=== PATIENT | female | born 1950 | race Caucasian/White ===

== ENCOUNTER 2020-08-23 17:40 | Observation (INO) | payer MEDICARE ==
--- NOTE | 2020-08-23 18:34 | ED ---
Headache HPI - General Chief Complaint: Headache Stated Complaint: headache Time Seen by Provider: 08/23/20 18:27 Mode of arrival: ambulatory Limitations: no limitations - History of Present Illness Initial Comments: 69-year-old female with history of trigeminal neuralgia presenting to the emergency room with chief complaint of headache. Patient states she's had multiple rhizotomies and craniotomies to perform decompressive surgery. Patient states her most recent surgery was performed about 10 years ago and Zachary was placed between the nurse and the artery. Patient states she has been asymptomatically for about 10 years until 2 days ago when she started to develop symptoms on the left lower side of the face and has gradually progressed more superior. Patient states she's had left-sided facial numbness and loss of hearing ever since her second craniotomy. Patient states she went [facility] and was given [place] for pain but could not be evaluated by neurologist so she came here instead. She denies one-sided weakness or paresthesias. - Related Data Allergies Allergy/AdvReac Type Severity Reaction Status Date / Time morphine Allergy Vomiting Verified 08/23/20 17:50 Review of Systems ROS Statement: Those systems with pertinent positive or pertinent negative responses have been documented in the HPI. ROS Other: All systems not noted in ROS Statement are negative. Past Medical History Past Medical History: Hypertension Additional Past Medical History / Comment(s): trigeminal neuralgia History of Any Multi-Drug Resistant Organisms: Unobtainable Past Surgical History: Cholecystectomy Additional Past Surgical History / Comment(s): craniotomy, back surgery. Past Psychological History: No Psychological Hx Reported Smoking Status: Never smoker Past Alcohol Use History: None Reported Past Drug Use History: None Reported General Exam Limitations: no limitations General appearance: alert, in no apparent distress Head exam: Present: atraumatic, normocephalic, normal inspection Eye exam: Present: normal appearance, PERRL, EOMI Pupils: Present: normal accommodation ENT exam: Present: normal exam, normal oropharynx, mucous membranes moist, TM's normal bilaterally, normal external ear exam Neck exam: Present: normal inspection, full ROM. Absent: tenderness Respiratory exam: Present: normal lung sounds bilaterally. Absent: respiratory distress, wheezes, rales Cardiovascular Exam: Present: regular rate, normal rhythm, normal heart sounds Extremities exam: Present: normal inspection, full ROM, normal capillary refill. Absent: tenderness, pedal edema, joint swelling Back exam: Present: normal inspection, full ROM Neurological exam: Present: alert, oriented X3 Psychiatric exam: Present: normal affect, normal mood Skin exam: Present: warm, dry, intact, normal color Course Vital Signs 08/23/20 17:46 Temperature 97.8 F Pulse Rate 69 Respiratory 18 Rate Blood Pressure 159/87 O2 Sat by Pulse 97 Oximetry Medical Decision Making - Medical Decision Making 69-year-old female with history of trigeminal neuralgia presenting to emergency Department with a chief complaint of headache. Neurological examination is unremarkable. Patient had multiple risotto me and craniotomy about 10 years ago. This is a new onset headache with a trigeminal neuralgia pattern on the left side of the face. CT of the brain and C-spine shows no acute processes. Patient will be symptomatic control and will be admitted for further medical management. Case discussed with physician. Disposition Clinical Impression: Headache Disposition: ADMITTED IP TO THIS [facility] Condition: Good Instructions (If sedation given, give patient instructions): Acute Headache (ED) Is patient prescribed a controlled substance at d/c from ED?: No Referrals: Fatmata Feldman DO [Primary Care Provider] - 1-2 days Time of Disposition: 20:42
--- NOTE | 2020-08-23 19:55 | CT ---
EXAMINATION TYPE: CT brain wo con DATE OF EXAM: 08/23/2020 COMPARISON: None HISTORY: WOODS CT DLP: 1114.4 mGycm Automated exposure control for dose reduction was used. Ventricles have normal size. There is no mass effect nor midline shift. There is no sign of intracran ial hemorrhage. There is old left side occipital posterior temporal craniotomy defect. There is some hypodensity in the lateral aspect left cerebellar hemisphere consistent with old encephalomalacia. Fo urth ventricle is in midline. There is no mass effect. Sella turcica appears normal. 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 No acute intracranial abnormality.
[2020-08-23] MEDS ORDERED: NALOXONE 0.4 MG/ML 1 ML VIAL IV PRN (20:42)
[2020-08-23] MEDS ORDERED: ACETAMINOPHEN TAB 325 MG TAB PO PRN (20:42)
[2020-08-23] MEDS ORDERED: LORazepam 2 MG/ML INJ IV PRN (20:42)
[2020-08-23] MEDS ORDERED: HYDROmorphone 0.5 MG/0.5 ML SYRINGE IVP PRN (20:42)
[2020-08-23] MEDS ORDERED: IBUPROFEN 400 MG TAB PO PRN (20:42)
[2020-08-23] MEDS ORDERED: HYDROmorphone 1 MG/ML 1 ML SYRINGE IVP PRN (20:42)
[2020-08-23] MEDS: HYDROcodone/APAP 5-325MG 1 EACH TAB PO PRN (21:05)
[2020-08-24] MEDS: ONDANSETRON 4 MG/2 ML VIAL IVP PRN ×3 (02:41→18:39)
[2020-08-24] MEDS: HYDROcodone/APAP 5-325MG 1 EACH TAB PO PRN ×2 (08:41→19:50)
[2020-08-24] MEDS: PANTOPRAZOLE 40 MG/10 ML VIAL IVP SCH ×2 (08:41→20:46)
--- NOTE | 2020-08-24 09:42 | P.HPIM ---
History of Present Illness This is a pleasant 69 years old female with past medical history of hypertension, pneumonia. Trigeminal neuralgia since 1983, status post 2 craniotomies and she felt better after the second one. She is a patient of Dr. Mcclelland. For the last 10 years or trigeminal neuralgia was controlled until Over the last 2 days she severe pain in the left base similar to her trigeminal neuralgia pain, felt like sharp shooting pain about 10/10 in severity, now coming down to 8/10 her pain was rotated into the left ear. No blurred vision. Patient also denies chest pain, no dyspnea, no diarrhea or change in bowel habits. No fever. Patient denies smoking, alcohol or illicit drug Vitals are stable. No labs done. CT of the brain showing old encephalomalacia in the left lateral cerebellar hemisphere. No acute intracranial abnormality Review of Systems CONSTITUTIONAL: No fever, no malaise, no fatigue. HEENT: No recent visual problems or hearing problems. Denied any sore throat. CARDIOVASCULAR: No orthopnea, PND, no palpitations, no syncope. PULMONARY: No shortness of breath, no cough, no hemoptysis. GASTROINTESTINAL: No diarrhea, no nausea, no vomiting, no abdominal pain. Normoactive bowel sounds. NEUROLOGICAL: no weakness, no numbness. HEMATOLOGICAL: Denies any bleeding or petechiae. GENITOURINARY: Denies any burning micturition, frequency, or urgency. MUSCULOSKELETAL/RHEUMATOLOGICAL: Denies any joint pain, swelling, or any muscle pain. ENDOCRINE: Denies any polyuria or polydipsia. Past Medical History Past Medical History: Hypertension, Pneumonia Additional Past Medical History / Comment(s): trigeminal neuralgia - started in 1983. pneumonia 2018. covid - jul 06 positive test History of Any Multi-Drug Resistant Organisms: None Reported Past Surgical History: Cholecystectomy Additional Past Surgical History / Comment(s): 2 craniotomy - 1998,2010. 4 rhizotomies - 1985,1988,1991,2000. back surgery - 2007 - pilonidal cyst between L5 and L6. c-sections, tubal - one removed. wisdom teeth Past Anesthesia/Blood Transfusion Reactions: No Reported Reaction Past Psychological History: No Psychological Hx Reported Smoking Status: Never smoker Past Alcohol Use History: None Reported Past Drug Use History: None Reported - Past Family History Father Family Medical History: Unable to Obtain Mother Family Medical History: Hypertension, Myocardial Infarction ([place]) Additional Family Medical History / Comment(s): rare form of epilepsy causing frequent status epilepticus episodes. in 2019 Son(s) Additional Family Medical History / Comment(s): add/adhd Medications and Allergies Home Medications Medication Instructions Recorded Confirmed Type Ascorbic Acid [Vitamin C] 500 mg PO DAILY 08/23/20 08/23/20 History Cetirizine HCl [Zyrtec] 10 mg PO HS 08/23/20 08/23/20 History Cholecalciferol [Vitamin D3 (25 50 mcg PO DAILY 08/23/20 08/23/20 History Mcg = 1000 Iu)] Losartan Potassium [Cozaar] 100 mg PO DAILY 08/23/20 08/23/20 History Multivitamins, Thera [Multivitamin 1 tab PO DAILY 08/23/20 08/23/20 History (formulary)] Omeprazole [PriLOSEC] 20 mg PO DAILY 08/23/20 08/23/20 History Zinc 50 mg PO DAILY 08/23/20 08/23/20 History buPROPion XL [Wellbutrin Xl] 150 mg PO DAILY 08/23/20 08/23/20 History Allergies Allergy/AdvReac Type Severity Reaction Status Date / Time morphine Allergy Vomiting Verified 08/23/20 20:57 Physical Exam Vitals: Vital Signs Temp Pulse Pulse Resp BP BP Pulse Ox 08/24/20 02:45 98.7 F 62 18 134/78 96 08/23/20 22:31 62 18 109/65 96 08/23/20 22:15 90 18 129/95 98 08/23/20 21:16 85 18 98 08/23/20 17:46 97.8 F 69 18 159/87 97 Intake and Output 08/23/20 08/24/20 08/24/20 22:59 06:59 14:59 Intake Total 100 Output Total 150 Balance -50 Intake: Oral 100 Output: Emesis 150 Other: Voiding Method Toilet # Voids 1 Weight 108.4 kg GENERAL: The patient is alert and oriented x3, not in any acute distress. Well developed, well nourished. HEENT: Pupils are round and equally reacting to light. EOMI. No scleral icterus. No conjunctival pallor. Normocephalic, atraumatic. No pharyngeal erythema. No thyromegaly. CARDIOVASCULAR: S1 and S2 present. No murmurs, rubs, or gallops. PULMONARY: Chest is clear to auscultation, no wheezing or crackles. ABDOMEN: Soft, nontender, nondistended, normoactive bowel sounds. No palpable organomegaly. MUSCULOSKELETAL: No joint swelling or deformity. EXTREMITIES: No cyanosis, clubbing, or pedal edema. NEUROLOGICAL: Gross neurological examination did not reveal any focal deficits. SKIN: No rashes. No petechiae Thrombosis Risk Factor Assmnt - Choose All That Apply Each Factor Represents 1 point: Obesity (BMI >25) Each Risk Factor Represents 2 Points: Age 61-74 years Thrombosis Risk Factor Assessment Total Risk Factor Score: 3 Thrombosis Risk Factor Assessment Level: Moderate Risk Assessment and Plan Assessment: Acute headache related to trigeminal neuralgia Essential hypertension Plan: This is a pleasant 69 years old female who presents with trigeminal neuralgia, continue with pain management and consult neurology. Labs and medication were reviewed.. Continue same treatment. Continue with symptomatic treatment. Resume home medication. Monitor lytes and vitals. DVT and GI prophylaxis. Further recommendations depends on the clinical course of the patient DVT prophylaxis: Subcutaneous heparin GI Prophylaxis: Pepcid
[2020-08-24 10:10] LABS: Basophils # (A) 0.1 k/uL (0-0.2); Basophils % (A) 1 %; Eosinophils % (A) 1 %; HCT 44.1 % (34.0-46.0); Lymphocytes # (A) 1.1 k/uL (1.0-4.8); Lymphocytes % (A) 18 %; MCH 32.2 pg (25.0-35.0); MCV 94.7 fL (80.0-100.0); Mean Platelet Volume 6.5; Monocytes # (A) 0.3 k/uL (0-1.0); Monocytes % (A) 5 %; Neutrophils # (A) 4.6 k/uL (1.3-7.7); Neutrophils % (A) 75 %; Platelet Count 216 k/uL (150-450); RBC 4.65 m/uL (3.80-5.40); RDW 12.4 % (11.5-15.5); WBC 6.2 k/uL (3.8-10.6)
[2020-08-24 10:17] LABS: Calcium 9.4 mg/dL (8.4-10.2); Potassium 4.3 mmol/L (3.5-5.1)
--- NOTE | 2020-08-24 10:17 | P.CNNES ---
History of Present Illness Consult date: 08/24/20 Requesting physician: Wilian Baca Reason for Consult: Headache History of Present Illness: This is a 69-year-old woman with medical history of trigeminal neuralgia (since age 34 years-old) status post multiple rhizotomies and craniotomies for decompression that presented to the emergency department on 08/23/2020 for headache. Patient stated that she's been asymptomatic for about 10 years until 2 days ago started developing electrical talk from the left upper lip all the way to the left side of the face and has been constant. She feels the pain is 10 over 10. Denies any photophobia or phonophobia. Denies any nausea and vomiting. Denies any ringing in the ear hearing loss. Denies any focal weakness or numbness. In the ED patient was started on Dilaudid 1 tablet every 3 hours. Patient was started on ibuprofen 400 mg 1 tablet every 4 hours. Was started on 0.5 mg of Ativan 1 tablet every 6 hours. Currently the patient's pain is 5/10. She denies any blurring of vision. Patient stated that that she drinks the 3-5 cans of pop and one cup of coffee daily. Patient stated that the regarding her trigeminal neuralgia she by neurologist as well as the neurosurgeon in the past. The last time she saw a neurologist was about 2 years ago and he retired. And she has not followed up with any neurologist since then. In the past that she had a surgery at the [facility] in which she had a craniotomy and it was over the left occipital region. And then had another surgery which was the last one about 10 years ago over at [facility] and she stated that after the surgery her headaches were controlled. She had at Zachary was placed and she is again as I mentioned earlier she's been asymptomatic for 10 years. She said that she's been having left facial numbness and left hearing loss since her second craniotomy. In the past she was on Tegretol high dose she said the Tegretol were helping but after being on high-dose that's when she started getting surgeries. Currently she is not on any medication. Also she was in the past on the gabapentin and that made her sick. Also she was on Elavil in the past but that didn't help him. As I stated earlier I the patient is not on any medication for her trigeminal neuralgia and she doesn't follow up with a neurologist or neurosurgeon in the last 2 years. Workup in our facility consisted of: Initial vital signs was blood pressure of 159/87, heart rate of 69, respiratory of 18, temperature of 97.8 Fahrenheit oral and pulse ox of 97% at room air. CT of the head is reported as old encephalomalacia over the left lateral cerebellar hemisphere. No acute intracranial abnormality. Facility the patient was started on Tylenol 650 mg 1 tablet the every 6 hours when necessary. She was also started on the Harmony 5/325 one tablet every 4 hours as needed. As well as Dilaudid 0.5 mg 1 tablet every 3 hours. As well as another 1 mg of Review of Systems Review of system: The 12 point system was reviewed and apparent positive and negative per HPI. Past Medical History Past Medical History: Hypertension, Pneumonia Additional Past Medical History / Comment(s): trigeminal neuralgia - started in 1983. pneumonia 2018. covid - jul 06 positive test History of Any Multi-Drug Resistant Organisms: None Reported Past Surgical History: Cholecystectomy Additional Past Surgical History / Comment(s): 2 craniotomy - 1998,2010. 4 rhizotomies - 1985,1988,1991,2000. back surgery - 2007 - pilonidal cyst between L5 and L6. c-sections, tubal - one removed. wisdom teeth Past Anesthesia/Blood Transfusion Reactions: No Reported Reaction Past Psychological History: No Psychological Hx Reported Smoking Status: Never smoker Past Alcohol Use History: None Reported Past Drug Use History: None Reported - Past Family History Father Family Medical History: Unable to Obtain Mother Family Medical History: Hypertension, Myocardial Infarction ([place]) Additional Family Medical History / Comment(s): rare form of epilepsy causing frequent status epilepticus episodes. in 2019 Son(s) Additional Family Medical History / Comment(s): add/adhd Medications and Allergies Home Medications Medication Instructions Recorded Confirmed Type Ascorbic Acid [Vitamin C] 500 mg PO DAILY 08/23/20 08/23/20 History Cetirizine HCl [Zyrtec] 10 mg PO HS 08/23/20 08/23/20 History Cholecalciferol [Vitamin D3 (25 50 mcg PO DAILY 08/23/20 08/23/20 History Mcg = 1000 Iu)] Losartan Potassium [Cozaar] 100 mg PO DAILY 08/23/20 08/23/20 History Multivitamins, Thera [Multivitamin 1 tab PO DAILY 08/23/20 08/23/20 History (formulary)] Omeprazole [PriLOSEC] 20 mg PO DAILY 08/23/20 08/23/20 History Zinc 50 mg PO DAILY 08/23/20 08/23/20 History buPROPion XL [Wellbutrin Xl] 150 mg PO DAILY 08/23/20 08/23/20 History Allergies Allergy/AdvReac Type Severity Reaction Status Date / Time morphine Allergy Vomiting Verified 08/23/20 20:57 Physical Examination - Vital Signs Vital Signs: Vital Signs Temp Pulse Pulse Resp BP BP Pulse Ox 08/24/20 02:45 98.7 F 62 18 134/78 96 08/23/20 22:31 62 18 109/65 96 08/23/20 22:15 90 18 129/95 98 08/23/20 21:16 85 18 98 08/23/20 17:46 97.8 F 69 18 159/87 97 Intake and Output 08/23/20 08/24/20 08/24/20 22:59 06:59 14:59 Intake Total 100 Output Total 150 Balance -50 Intake: Oral 100 Output: Emesis 150 Other: Voiding Method Toilet # Voids 1 Weight 108.4 kg GENERAL: The patient is lying in bed and is not in mild acute distress. CHEST: The heart rate is regular rate rhythm. No murmurs to auscultation. LUNG: Clear to auscultation bilaterally no wheezing noted throughout. Not labored breathing. ABDOMEN/GI: Bowel sounds present in all 4 quadrants. No tenderness to palpation throughout. NEUROLOGICAL: Higher mental function: The patient is awake, alert, oriented to self, place and time. Patient is following commands. No aphasia and no neglect. Cranial nerves: Visual acuity is 20/20 OD and 20/40 OS without correction. The pupils are round, equal and reactive to light and accommodation. Visual carnes are full to confrontation throughout. Extraocular movement is intact no nystagmus is noted. Facial sensation is normal to touch throughout. Gait is deferred. The facial strength is normal throughout. Hearing is normal bilaterally to hand rub. Tongue is midline and moved [id number] without any difficulty. No dysarthria is noted. Shoulder shrug is normal bilaterally. Motor: The strength is 5 over 5 throughout. Normal tone and bulk. Cerebellum: Normal finger to nose heel to domínguez bilaterally. Sensation: Sensation is normal to touch throughout. Reflexes (right/left): 2+ throughout. Plantars are downgoing bilaterally. Assessment and Plan Assessment: This is a 69-year-old woman with medical history of trigeminal neuralgia status post multiple rhizotomies and craniotomies for decompression that presented to the emergency department on 08/23/2020 for headache. 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 Plan: I'll start the patient on carbamazepine 100 mg 1 tablet twice a day. I notified the patient to have that doesn't help we'll attempt to try treated in a week and can go up 100 mg 2 tablet twice a day. I notified her that the medication can cause hyponatremia. I ordered the CBC and BMP. She was advised to cut down on that excessive caffeinated/pop during which cause rebound headache. Patient is in agreement that she'll hold off on any further at imaging such as MRI until she sees a neurologist as an outpatient if needed. Please avoid excessive opioid/narcotic use which can cause rebound headache. Upon discharge the patient needs to follow-up with a neurologist as outpatient within 1-2 weeks. I recommend patient to follow-up with Dr. Hope (headache specialist) over at [facility] as outpatient. The plan was discussed with the patient's nurse. Thank you for the consultation. Sravan Barajas MD Neuro-Hospitalist Time with Patient: Greater than 30
[2020-08-24] MEDS: carBAMazepine 200 MG TAB PO SCH ×2 (10:20→19:51)
[2020-08-24] MEDS ORDERED: ZINC SULFATE 220 MG CAP PO SCH (12:00)
[2020-08-24] MEDS: ASCORBIC ACID 500 MG TAB PO SCH (12:04)
[2020-08-24] MEDS: CHOLECALCIFEROL 25 MCG (1000 IU) TABLET PO SCH (12:04)
[2020-08-24] MEDS: buPROPion XL 150 MG TAB.ER.24H PO SCH (12:05)
[2020-08-24] MEDS: HEPARIN SODIUM,PORCINE 5,000 UNIT/ML 1 ML VIAL SQ SCH (20:47)
[2020-08-24] MEDS: FAMOTIDINE 20 MG/2 ML VIAL IV SCH (20:47)
[2020-08-24] MEDS: LOSARTAN 50 MG TAB PO SCH (20:47)
[2020-08-24] MEDS ORDERED: LORATADINE 10 MG TAB PO SCH (21:00)
[2020-08-25] MEDS ORDERED: ASCORBIC ACID 500 MG TAB PO SCH (09:00)
[2020-08-25] MEDS ORDERED: LOSARTAN 50 MG TAB PO SCH (09:00)
[2020-08-25] MEDS ORDERED: buPROPion XL 150 MG TAB.ER.24H PO SCH (09:00)
[2020-08-25] MEDS ORDERED: ZINC SULFATE 220 MG CAP PO SCH (09:00)
[2020-08-25] MEDS ORDERED: CHOLECALCIFEROL 25 MCG (1000 IU) TABLET PO SCH (09:00)
[2020-08-25 09:33] VITALS: BP 141/68; PULSE 65; RESP 18; TEMP 97.5
[2020-08-25] MEDS: carBAMazepine 200 MG TAB PO SCH (09:47)
[2020-08-25] MEDS: buPROPion XL 150 MG TAB.ER.24H PO SCH (09:48)
[2020-08-25] MEDS: CHOLECALCIFEROL 25 MCG (1000 IU) TABLET PO SCH (09:49)
[2020-08-25] MEDS: FAMOTIDINE 20 MG/2 ML VIAL IV SCH (09:53)
[2020-08-25] MEDS: PANTOPRAZOLE 40 MG/10 ML VIAL IVP SCH (09:53)
[2020-08-25] MEDS: HEPARIN SODIUM,PORCINE 5,000 UNIT/ML 1 ML VIAL SQ SCH (09:53)
[2020-08-25] MEDS: LOSARTAN 50 MG TAB PO SCH (09:54)
[2020-08-25] MEDS: ASCORBIC ACID 500 MG TAB PO SCH (09:55)
--- NOTE | 2020-08-25 11:39 | P.PN ---
Subjective Progress Note Date: 08/25/20 The patient was seen at bedside and she stated that she's doing much better today compared to yesterday. She stated that her headache has resolved. She feels somewhat nauseous but otherwise she's doing great. Denies of any focal weakness numbness or visual disturbance. Objective - Vital Signs Vital signs: Vital Signs Temp 97.5 F L 08/25/20 08:30 Pulse 65 08/25/20 08:30 Resp 18 08/25/20 08:30 BP 141/68 08/25/20 08:30 Pulse Ox 98 08/25/20 08:30 Intake & Output 08/24/20 08/25/20 08/25/20 18:59 06:59 18:59 Intake Total 1040 400 Output Total 60 200 Balance 980 200 Intake: Oral 1040 400 Output: Emesis 60 200 Other: # Voids 3 2 1 - Exam GENERAL: The patient is lying in bed and is not in acute distress. NEUROLOGICAL: Higher mental function: The patient is awake, alert, oriented to self, place and time. Patient is following commands. No aphasia and no neglect. Cranial nerves: Visual acuity is 20/20 OD and 20/40 OS without correction. The pupils are round, equal and reactive to light and accommodation. Visual carnes are full to confrontation throughout. Extraocular movement is intact no nystagmus is noted. Facial sensation is normal to touch throughout. Gait is deferred. The facial strength is normal throughout. Hearing is normal bilaterally to hand rub. Tongue is midline and moved [id number] without any difficulty. No dysarthria is noted. Shoulder shrug is normal bilaterally. Motor: Gait is deferred. The strength is 5 over 5 throughout. Normal tone and bulk. Cerebellum: Normal finger to nose heel to domínguez bilaterally. Sensation: Sensation is normal to touch throughout. Reflexes (right/left): 2+ throughout. Plantars are downgoing bilaterally. - Labs CBC & Chem 7: 08/24/20 09:57 08/24/20 09:57 Assessment and Plan Assessment: This is a 69-year-old woman with medical history of trigeminal neuralgia status post multiple rhizotomies and craniotomies for decompression that presented to the emergency department on 08/23/2020 for headache. 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 Plan: Continue carbamazepine 100 mg 1 tablet twice a day. I notified the patient if that doesn't help we'll attempt to try treated in a week and can go up 100 mg 2 tablet twice a day. I notified her that the medication can cause hyponatremia. Curently sodium is 140. She was advised to cut down on that excessive caffeinated/pop during which cause rebound headache. Patient is in agreement that she'll hold off on any further at imaging such as MRI until she sees a neurologist as an outpatient if needed. Please avoid excessive opioid/narcotic use which can cause rebound headache. Upon discharge the patient needs to follow-up with a neurologist as outpatient within 1-2 weeks. I recommend patient to follow-up with Dr. Ludin Hope (headache specialist) over at [facility] as outpatient. The plan was discussed with the patient's nurse. There is no further work-up. The patient is clear from neurology perspective. Sravan Barajas MD Neuro-Hospitalist Time with Patient: Less than 30
--- NOTE | 2020-08-25 23:20 | P.DS ---
Providers Date of admission: 08/23/20 20:33 Attending physician: David Cook Consults: 08/23/20 20:42 Consult Physician Stat Consulting Provider: Sravan Barajas Reason/Comments: Headache, trigeminal neuralgia Do you want consulting provider notified?: Yes Primary care physician: Fatmata Mcclelland Hospital Course: Diagnoses: Acute headache related to trigeminal neuralgia, improved upon discharge Essential hypertension Hospital course: This is a pleasant 69 years old female with past medical history of hypertension, pneumonia. Trigeminal neuralgia since 1983, status post 2 craniotomies and she felt better after the second one. She is a patient of Dr. Mcclelland. 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 No acute intracranial abnormality Patient was evaluated by neurologist who started her on Tegretol 100 mg twice a day with recommendation to increase it to 200 twice a day in one week if symptoms to controlled Next a patient pain was started improving significantly but partially, patient felt comfortable going home today and follow-up as an outpatient as instructed. 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 Barajas and he cleared her for discharge Problems and management plan were discussed with the patient and he verbalized understanding and acceptance Patient was found stable and can be discharged home however he needs follow-up as an outpatient. Patient was instructed to follow up with PCP Krystin within one week and patient agrees. Also patient was instructed to follow up with the neurologist in 1-2 weeks, Dr. Donaldson recommended Dr. Perez for her , while I suggested for names of neurologist for her to call, C discharge instructions, patient agrees to call and make appointments Physical exam Gen: patient is a AAOx3, no distress CVS: S1-S2, RRR, no murmur Lungs: B/L CTA, no wheezing Abdomen: soft, no distention, no tenderness, positive bowel sounds Extremity: no leg edema or induration Time spent more than 35 minutes Patient Condition at Discharge: Good Plan - Discharge Summary Discharge Rx Participant: Yes New Discharge Prescriptions: New HYDROcodone/APAP 5-325MG [[place] 5-325] 1 each PO DAILY PRN 3 Days #3 tab PRN Reason: Moderate Pain carBAMazepine [TEGretol] 100 mg PO BID #30 tab Acetaminophen Tab [Tylenol] 650 mg PO Q6HR PRN tab PRN Reason: Mild Pain Or Fever > 100.5 Continue Zinc 50 mg PO DAILY Omeprazole [PriLOSEC] 20 mg PO DAILY Multivitamins, Thera [Multivitamin (formulary)] 1 tab PO DAILY Cholecalciferol [Vitamin D3 (25 Mcg = 1000 Iu)] 50 mcg PO DAILY Cetirizine HCl [Zyrtec] 10 mg PO HS Ascorbic Acid [Vitamin C] 500 mg PO DAILY buPROPion XL [Wellbutrin XL] 150 mg PO DAILY Losartan Potassium [Cozaar] 100 mg PO DAILY Discharge Medication List Ascorbic Acid [Vitamin C] 500 mg PO DAILY 08/23/20 [History] Cetirizine HCl [Zyrtec] 10 mg PO HS 08/23/20 [History] Cholecalciferol [Vitamin D3 (25 Mcg = 1000 Iu)] 50 mcg PO DAILY 08/23/20 [History] Losartan Potassium [Cozaar] 100 mg PO DAILY 08/23/20 [History] Multivitamins, Thera [Multivitamin (formulary)] 1 tab PO DAILY 08/23/20 [History] Omeprazole [PriLOSEC] 20 mg PO DAILY 08/23/20 [History] Zinc 50 mg PO DAILY 08/23/20 [History] buPROPion XL [Wellbutrin XL] 150 mg PO DAILY 08/23/20 [History] Acetaminophen Tab [Tylenol] 650 mg PO Q6HR PRN tab 08/25/20 [Rx] HYDROcodone/APAP 5-325MG [[place] 5-325] 1 each PO DAILY PRN 3 Days #3 tab 08/25/20 [Rx] carBAMazepine [TEGretol] 100 mg PO BID #30 tab 08/25/20 [Rx] Follow up Appointment(s)/Referral(s): Cristi Sherman MD [REFERRING] - 2 Weeks (neurologist ) Fatmata Mcclelland DO [Primary Care Provider] - 1-2 days (we recommend to check your sodium level with your doctor in one week) Cait Hope MD [REFERRING] - 2 Weeks (neurologist (headache specialist) over at [facility] as outpatient.) Kj Loyola MD [Medical Doctor] - 2 Weeks (neurologist ) Melissa Sherman MD [REFERRING] - 2 Weeks (neurologist ) Sravan Obando MD [STAFF PHYSICIAN] - 2 Weeks (neurologist ) Patient Instructions/Handouts: Acute Headache (ED) Activity/Diet/Wound Care/Special Instructions: Resume previous diet Activity is restricted till you see your doctor Review neurologist recommendations and make an appointment accordingly Contact your Dr. if you begin having uncontrolled pain or experience any worsening symptoms that brought you here or any other concerns Practice good handwashing Discharge Disposition: HOME SELF-CARE
== END 2020-08-25 13:25 | disposition home or self-care (01) ==
LOC: EC 17:40 → 5NMEDONC 20:33 → 6PED 22:10
PROVIDERS: ADMIT Hospitalist; ATTEND Hospitalist
DX: R51.9 Headache, unspecified (principal); G50.0 Trigeminal neuralgia; I10 Essential (primary) hypertension; G93.89 Other specified disorders of brain; H91.92 Unspecified hearing loss, left ear; R11.0 Nausea; R20.0 Anesthesia of skin; Z86.16 Personal history of COVID-19; E66.9 Obesity, unspecified; Z68.41 Body mass index [BMI] 40.0-44.9, adult; Z87.01 Personal history of pneumonia (recurrent); Z90.49 Acquired absence of other specified parts of digestive tract; Z98.890 Other specified postprocedural states; Z82.49 Family history of ischemic heart disease and other diseases of the circulatory system; Z82.0 Family history of epilepsy and other diseases of the nervous system; Z79.899 Other long term (current) drug therapy; Z88.5 Allergy status to narcotic agent
CPT/HCPCS: 96376 ×2; 96372 ×2; 96374; 96375; 99285; 80048; 85025; 70450; G0378 ×4; J1644 ×2; J2405; C9113 ×2; J1170

== ENCOUNTER → 2024-09-02 | Outpatient (CLI) | payer MEDICARE ==
--- NOTE | 2024-09-02 14:29 | MM ---
Reason for Exam: Clinical finding. Patient History: Menarche at age 13. First Full-Term at age 26. Postmenopausal. Risk Values: Miranda 5 year model risk: 2.0%. NCI Lifetime model risk: 5.1%. Tissue Density: The breasts are almost entirely fatty. Findings: Analyzed By CAD. Palpable abnormalities correlate with benign we'll cysts in the right breast. There are at least 7 of these lesions with peripheral calcification. No new suspicious masses, calcifications or distortions. Overall Assessment: Benign, BI-RAD 2 Management: Screening Mammogram of both breasts in 1 year. Results were given to the patient verbally at the time of exam. Patient should continue monthly self-breast exams. A clinical breast exam by your physician is recommended on an annual basis. This exam should not preclude additional follow-up of suspicious palpable abnormalities. Note on Miranda scores and lifetime risk: 1. A Miranda score greater than 3% is considered moderate risk. If this is the case, consider specialist referral to assess eligibility for a risk reducing agent. 2. If overall lifetime risk for the development of breast cancer is 20% or higher, the patient may qualify for future screening with alternating mammogram and breast MRI. [facility], , 09/02/2024 1:43 PM. Electronically signed and approved by: Luis Dutta DO
== END | disposition home or self-care (01) ==
LOC: RADMAMWWP 13:07
PROVIDERS: ATTEND Family Medicine
DX: N63.11 Unspecified lump in the right breast, upper outer quadrant (principal); R92.313 Mammographic fatty tissue density, bilateral breasts; Z78.0 Asymptomatic menopausal state
CPT/HCPCS: 77066; G0279; 77062